=== PATIENT | female | born 1980 | race Two or more races ===

== ENCOUNTER 2020-10-12 19:03 | Emergency (ER) | payer OTHER ==
[2020-10-12 19:27] VITALS: TEMP 98.2; BMI 20.7
[2020-10-12] MEDS ORDERED: ACETAMINOPHEN 500 MG TABLET (FP) PO ONE (20:39)
[2020-10-12 20:49] LABS: EPI CELLS 2 /uL (0-25.1); HYALINE CASTS 2 /uL (0-3.1); PH,URINE 5.5 (5.0-8.0); URINE APPEARANCE CLOUDY; URINE BACTERIA 46 /uL (0-1359); URINE BILIRUBIN NEGATIVE (NEGATIVE); URINE COLOR ORANGE; URINE GLUCOSE (UA) NEGATIVE (NEGATIVE); URINE KETONE NEGATIVE (NEGATIVE); URINE LEUK ESTERASE 3+ (NEGATIVE); URINE NITRITE NEGATIVE (NEGATIVE); URINE PROTEIN 1+ (NEGATIVE); URINE RBC 779 /uL (0-23.9); URINE UROBILINOGEN 0.2 mg/dL (0.2-1.0); URINE WBC 644 /uL (0-25.8)
[2020-10-12 20:50] LABS: HCG,QUALITATIVE URINE Negative
[2020-10-12] MEDS ORDERED: ACETAMINOPHEN 500 MG TABLET (FP) ONE ×2 (21:52→21:54)
[2020-10-12 22:01] VITALS: BP 100/68; PULSE 78
== END 2020-10-12 22:03 | disposition home or self-care (01) ==
LOC: JER 19:03
DX: N30.90 Cystitis, unspecified without hematuria (principal)
CPT/HCPCS: 81003; 84703; 87086; 99283-25

== ENCOUNTER 2021-01-13 17:00 | Emergency (ER) | payer OTHER ==
[2021-01-13 17:16] VITALS: BMI 20.5
[2021-01-13] MEDS ORDERED: ONDANSETRON 4 MG/2 ML VIAL IVPUSH ONE (18:09)
[2021-01-13] MEDS ORDERED: SODIUM CHLORIDE 1,000 ML IV STA (18:09)
[2021-01-13] MEDS ORDERED: ONDANSETRON 4 MG/2 ML VIAL ONE (18:41)
[2021-01-13 18:50] VITALS: BP 116/74; PULSE 70; TEMP 98.9
[2021-01-13 19:27] LABS: BASO % 0.3 % (0-2.0); EOS % 0.4 % (0-4.5); HEMATOCRIT 33.1 % (32.4-45.2); LYMPH % 27.5 % (8-40); MCH 25.4 pg (25.7-33.7); MCHC 33.3 g/dl (32.0-36.0); MEAN CELL VOLUME 76.1 fl (80-96); MEAN PLT VOLUME 7.3 fl (7.5-11.1); MONO % 6.4 % (3.8-10.2); NEUT % 65.4 % (42.8-82.8); PLATELET COUNT 348 10^3/uL (134-434); RBC 4.36 M/mm3 (3.60-5.2); RDW 16.6 % (11.6-15.6); WHITE BLOOD COUNT 10.8 K/mm3 (4.0-10.0)
[2021-01-13 19:31] LABS: URINE APPEARANCE CLEAR; URINE BILIRUBIN NEGATIVE (NEGATIVE); URINE COLOR YELLOW; URINE GLUCOSE (UA) NEGATIVE (NEGATIVE); URINE KETONE NEGATIVE (NEGATIVE); URINE LEUK ESTERASE NEGATIVE (NEGATIVE); URINE NITRITE NEGATIVE (NEGATIVE); URINE PROTEIN NEGATIVE (NEGATIVE); URINE UROBILINOGEN 0.2 mg/dL (0.2-1.0)
[2021-01-13 19:35] LABS: INR 0.94 (0.83-1.09); PROTHROMBIN TIME (PATIENT) 11.4 SEC (9.7-13.0)
[2021-01-13 19:38] LABS: ACTIVATED PTT 31.8 SECONDS (25.2-36.5)
[2021-01-13 20:10] LABS: CALCIUM 9.2 mg/dL (8.5-10.1)
[2021-01-13 20:12] LABS: ALBUMIN 3.6 g/dl (3.4-5.0); BLOOD UREA NITROGEN 6.5 mg/dL (7-18)
[2021-01-13 20:15] LABS: CREATININE 0.6 mg/dL (0.55-1.3)
[2021-01-13 20:16] LABS: BILIRUBIN,TOTAL 0.3 mg/dL (0.2-1)
[2021-01-13 20:19] LABS: TOT PROT 7.6 g/dl (6.4-8.2)
== END 2021-01-13 21:38 | disposition home or self-care (01) ==
LOC: JER 17:00
PROC: 3E033NZ Introduction of Analgesics, Hypnotics, Sedatives into Peripheral Vein, Percutaneous Approach (ICD-10-PCS; principal; 2021-01-13)
PROC: 3E0337Z Introduction of Electrolytic and Water Balance Substance into Peripheral Vein, Percutaneous Approach (ICD-10-PCS; 2021-01-13)
DX: O26.891 Other specified pregnancy related conditions, first trimester (principal); R10.9 Unspecified abdominal pain; Z3A.01 Less than 8 weeks gestation of pregnancy
CPT/HCPCS: 36415; 76817-TC; 80053; 81003; 84702; 85025; 85610; 85730; 86850; 86900; 86901; 87077; 87086; 99284-25

== ENCOUNTER 2021-08-22 05:50 | Inpatient (IN) | payer OTHER ==
[2021-08-22] MEDS ORDERED: CITRIC ACID/SODIUM CITRATE 30 ML UNIT-DOSE CUP PO ONE (07:31)
[2021-08-22] MEDS ORDERED: ELECTROLYTE-148 SOLN 1,000 ML IV SCH (07:45)
[2021-08-22 08:19] VITALS: BMI 25.1
[2021-08-22] MEDS ORDERED: IBUPROFEN 800 MG/8 ML IJ IVPB PRN (09:07)
[2021-08-22] MEDS ORDERED: ACETAMINOPHEN 325 MG TABLET (FP) PO PRN (09:07)
[2021-08-22] MEDS: OXYTOCIN 20 UNITS in 0.9% NS 20 UNIT/1,000 ML INFUS.BAG IV SCH ×2 (10:54→18:43)
[2021-08-22] MEDS ORDERED: METHYLERGONOVINE MALEATE 0.2 MG/1 ML AMP IM ONE (10:59)
[2021-08-22] MEDS ORDERED: OXYTOCIN 20 UNITS in 0.9% NS 20 UNIT/1,000 ML INFUS.BAG IV ONE (11:12)
[2021-08-22] MEDS: METHYLERGONOVINE MALEATE 0.2 MG TABLET (FP) PO SCH ×3 (15:17→23:07)
[2021-08-22] MEDS ORDERED: oxyCODONE HCL 5 MG TABLET PO PRN (21:07)
[2021-08-23] MEDS: METHYLERGONOVINE MALEATE 0.2 MG TABLET (FP) PO SCH ×2 (02:34→06:45)
[2021-08-23] MEDS: SIMETHICONE 80 MG TAB.CHEW (FP) PO PRN ×2 (06:44→20:22)
[2021-08-23] MEDS: IBUPROFEN 600 MG TABLET (FP) PO PRN ×2 (08:46→20:22)
[2021-08-23] MEDS ORDERED: BISACODYL 10 MG SUPP.RECT RC PRN (09:07)
[2021-08-23 09:26] LABS: BASO % 0.2 % (0-2.0); EOS % 0.3 % (0-4.5); HEMATOCRIT 36.4 % (32.4-45.2); HEMOGLOBIN 11.9 GM/dL (10.7-15.3); LYMPH % 15.9 % (8-40); MCH 26.8 pg (25.7-33.7); MCHC 32.6 g/dl (32.0-36.0); MEAN CELL VOLUME 82.1 fl (80-96); MEAN PLT VOLUME 8.3 fl (7.5-11.1); NEUT % 78.6 % (42.8-82.8); PLATELET COUNT 255 10^3/uL (134-434); RBC 4.44 M/mm3 (3.60-5.2); RDW 20.7 % (11.6-15.6); WHITE BLOOD COUNT 10.7 K/mm3 (4.0-10.0)
[2021-08-23 11:35] LABS: ANISOCYTOSIS 1+; MACROCYTOSIS 1+
[2021-08-24] MEDS: SIMETHICONE 80 MG TAB.CHEW (FP) PO PRN ×2 (06:39→19:49)
[2021-08-24] MEDS: IBUPROFEN 600 MG TABLET (FP) PO PRN ×3 (06:39→19:49)
[2021-08-24] MEDS: OXYTOCIN 20 UNITS in 0.9% NS 20 UNIT/1,000 ML INFUS.BAG IV SCH (19:47)
[2021-08-25] MEDS: SIMETHICONE 80 MG TAB.CHEW (FP) PO PRN ×2 (01:04→05:29)
[2021-08-25] MEDS: IBUPROFEN 600 MG TABLET (FP) PO PRN (05:29)
[2021-08-25 06:53] LABS: BASO % 0.2 % (0-2.0); EOS % 1.2 % (0-4.5); HEMATOCRIT 29.8 % (32.4-45.2); HEMOGLOBIN 9.8 GM/dL (10.7-15.3); LYMPH % 32.6 % (8-40); MCH 27.2 pg (25.7-33.7); MCHC 32.9 g/dl (32.0-36.0); MEAN CELL VOLUME 82.7 fl (80-96); MEAN PLT VOLUME 7.8 fl (7.5-11.1); MONO % 5.9 % (3.8-10.2); NEUT % 60.1 % (42.8-82.8); PLATELET COUNT 261 10^3/uL (134-434); RDW 20.7 % (11.6-15.6); WHITE BLOOD COUNT 7.8 K/mm3 (4.0-10.0)
[2021-08-25 09:15] VITALS: BP 106/66; PULSE 65; TEMP 98
== END 2021-08-25 12:25 | disposition home or self-care (01) | DRG 540 ==
LOC: JDEL 05:50 → JLDR 06:35 → J3W 11:47
PROVIDERS: ADMIT Obstetrics & Gynecology; ATTEND Obstetrics & Gynecology
PROC: 10D00Z1 Extraction of Products of Conception, Low, Open Approach (ICD-10-PCS; principal; 2021-08-22)
PROC: 0UT70ZZ Resection of Bilateral Fallopian Tubes, Open Approach (ICD-10-PCS; 2021-08-22)
DX: O34.211 Maternal care for low transverse scar from previous cesarean delivery (principal); O24.424 Gestational diabetes mellitus in childbirth, insulin controlled; Z30.2 Encounter for sterilization; Z3A.39 39 weeks gestation of pregnancy; Z37.0 Single live birth
CPT/HCPCS: 36415; 59025; 80053; 81003; 82962; 85025; 85610; 86780; 86850; 86900; 86901; 88302-TC; 88307-TC; C9803-CS; G0463-25; U0003; U0005